=== PATIENT | female | born 2000 | race Two or more races ===

== ENCOUNTER 2020-05-26 04:57 | Emergency (ER) | payer OTHER ==
[~2020-05-26] VITALS: Ht 157.5 cm; Wt 49.9 kg
[2020-05-26 05:10] VITALS: BP 110/70
--- NOTE | 2020-05-26 05:20 | NUR ---
lab at bedside for blood draw.
--- NOTE | 2020-05-26 05:26 | NUR ---
PATIENT CAME TO ER [facility] FOR BIZZARE BEHAVIOR FROM THE STREETS. PATIENT IS AAOX4. NO SOB. BREATHING EVENLY AND UNLABORED ON ROOM AIR. PATIENT IS AMBULATORY WITH A STEADY GAIT.
[2020-05-26 05:31] LABS: BASOPHILS % (AUTO) 0.4 % (0.0-2.0); EOSINOPHILS % (AUTO) 0.9 % (0.0-6.0); HEMATOCRIT 47 % (33-45); HEMOGLOBIN 15.6 g/dL (11.5-14.8); LYMPHOCYTES # (AUTO) 2.1 /CMM (0.8-4.8); LYMPHOCYTES % (AUTO) 28.2 % (20.0-44.0); MEAN CORPUSCULAR HGB CONC 33 g/dl (31.0-36.0); MEAN CORPUSCULAR VOLUME 91 fL (82-100); MONOCYTES # (AUTO) 1.1 /CMM (0.1-1.30); MONOCYTES % (AUTO) 14.7 % (2.0-12.0); NEUTROPHILS # (AUTO) 4.1 /CMM (1.8-8.9); NEUTROPHILS % (AUTO) 55.8 % (43.0-81.0); PLATELET COUNT (AUTO) 333 /CMM (150-450); RED BLOOD CELL COUNT(AUTO) 5.16 MIL/uL (4.0-5.2); WHITE BLOOD COUNT (AUTO) 7.4 K/uL (4.3-11.0)
--- NOTE | 2020-05-26 05:32 | NUR ---
PATIENT IS GIVEN A BED BOWMAN.
[2020-05-26 05:56] LABS: ALANINE AMINOTRANSFERASE 25 U/L (12-78); ALBUMIN 4.4 g/dL (3.4-5.0); ALCOHOL, BLOOD < 3 mg/dL (0-0); ALKALINE PHOSPHATASE 92 U/L (46-116); ASPARTATE AMINOTRANSFERASE 19 U/L (15-37); BILIRUBIN,DIRECT 0.2 mg/dL (0.0-0.2); BILIRUBIN,TOTAL 0.7 mg/dL (0.2-1.0); CALCIUM, SERUM 9.2 mg/dL (8.5-10.1); CARBON DIOXIDE 25 mmol/L (21-32); CHLORIDE 99 mmol/L (98-107); CREATININE 0.7 mg/dL (0.6-1.3); GLUCOSE 80 mg/dL (74-106); POTASSIUM 3.9 mmol/L (3.5-5.1); SALICYLATE 0.5 mg/dL (2.8-20.0); SODIUM SERUM 138 mmol/L (136-145); TOTAL PROTEIN, SERUM 8.9 g/dL (6.4-8.2); UREA NITROGEN, BLOOD 11 mg/dL (7-18)
[2020-05-26 05:57] LABS: ACETAMINOPHEN 0 ug/ml (10-30)
[2020-05-26 06:16] LABS: BILIRUBIN,URINE SMALL (NEGATIVE); BLOOD, URINE TRACE-INTA Ery/uL (NEGATIVE); COLOR,URINE YELLOW (YELLOW); PROTEIN,URINE NEGATIVE (NEGATIVE); UGLUCOSE NEGATIVE (NEGATIVE)
[2020-05-26 06:17] LABS: APPEARANCE,URINE SLIGHTLY CLOUDY (CLEAR); KETONES,URINE 15 (NEGATIVE); LEUKOCYTE ESTERASE ,URINE SMALL (NEGATIVE); NITRITE, URINE NEGATIVE (NEGATIVE); UROBILINOGEN,URINE 0.2 EU/dL (0.2)
[2020-05-26 06:37] LABS: BACTERIA,URINE Rare /HPF (None Seen); SQUAMOUS EPITHELIAL CELL,UR Few /HPF (None Seen)
--- NOTE | 2020-05-26 06:48 | NUR ---
PATIENT IS ON THE PHONE WITH MOTHER.
--- NOTE | 2020-05-26 06:56 | NUR ---
PATIENT STATES THAT HER MOTHER WILL PICK HER UP. PATIENT STATES SHE WANTS TO WAIT IN THE WAITING ROOM.
== END 2020-05-26 07:03 | disposition home or self-care (01) ==
LOC: ER 05:01
DX: R46.1 Bizarre personal appearance (principal)
CPT/HCPCS: 36415; 80048; 80076; 80305; 80307; 80329; 81001; 84703; 85025; 99283; G0480; 81000-TC

== ENCOUNTER 2020-06-04 17:28 | Observation (INO) | payer SELFPAY ==
[~2020-06-04] VITALS: Ht 165.1 cm; Wt 54.9 kg
[2020-06-04] MEDS ORDERED: OLANZAPINE 10 MG VIAL IM ONE ×2 (17:31→18:00)
[2020-06-04] MEDS ORDERED: LORAZEPAM INJ 2 MG/ML VIAL ONE (17:31)
--- NOTE | 2020-06-04 17:44 | NUR ---
LESLY AND KELLEE FROM THE STREET UN RESTRAINTS TO ER BED 13. AWAKE AND ALERT. BROUGHT IN FOR MARILU LITTLE. PER KELLEE REPORT, [facility] WAS CALLED IN BECAUSE PT WAS TRYING TO GOING IN OTHER PEOPLE'S CAR AND HOUSE. PT ADMITTED TO THE COLORING ROOM MAN THAT SHE TOOK ACID AND MUSHROOM. UPON ASKING PT, SHE CONFIRMED THAT SHE DID. DENIES ANY SUICIDAL NOR HOMICIDAL IDEATION WHEN ASKED. PT REMAINED ON RESTRAINTS PER MD ORDERED FOR PT AND STAFF SAFETY. 1:1 SITTER AT BEDSIDE.MD WAS AT THE BEDSIDE FOR EVAL. ORDERS RECEIVED NOTED AND CARRIED OUT. MEDICATED ORDERED
[2020-06-04 17:48] LABS: BASOPHILS % (AUTO) 0.4 % (0.0-2.0); EOSINOPHILS % (AUTO) 1.1 % (0.0-6.0); HEMATOCRIT 41 % (33-45); HEMOGLOBIN 13.9 g/dL (11.5-14.8); LYMPHOCYTES # (AUTO) 2.7 /CMM (0.8-4.8); LYMPHOCYTES % (AUTO) 23.9 % (20.0-44.0); MEAN CORPUSCULAR HGB CONC 34 g/dl (31.0-36.0); MEAN CORPUSCULAR VOLUME 92 fL (82-100); MONOCYTES # (AUTO) 1.4 /CMM (0.1-1.30); MONOCYTES % (AUTO) 12.5 % (2.0-12.0); NEUTROPHILS # (AUTO) 6.9 /CMM (1.8-8.9); NEUTROPHILS % (AUTO) 62.1 % (43.0-81.0); PLATELET COUNT (AUTO) 343 /CMM (150-450); RED BLOOD CELL COUNT(AUTO) 4.51 MIL/uL (4.0-5.2); WHITE BLOOD COUNT (AUTO) 11.2 K/uL (4.3-11.0)
[2020-06-04 17:57] LABS: CARBON DIOXIDE 29 mmol/L (21-32); CHLORIDE 102 mmol/L (98-107); CREATININE 0.9 mg/dL (0.6-1.3); GLUCOSE 82 mg/dL (74-106); POTASSIUM 3.8 mmol/L (3.5-5.1); SODIUM SERUM 142 mmol/L (136-145); UREA NITROGEN, BLOOD 12 mg/dL (7-18)
[2020-06-04 17:59] LABS: CALCIUM, SERUM 8.8 mg/dL (8.5-10.1)
[2020-06-04] MEDS ORDERED: LORAZEPAM INJ 2 MG/ML VIAL IM ONE (18:00)
[2020-06-04 18:07] LABS: ACETAMINOPHEN < 2 ug/ml (10-30); ALANINE AMINOTRANSFERASE 36 U/L (12-78); ALBUMIN 4.1 g/dL (3.4-5.0); ALCOHOL, BLOOD < 3 mg/dL (0-0); ALKALINE PHOSPHATASE 73 U/L (46-116); ASPARTATE AMINOTRANSFERASE 31 U/L (15-37); BILIRUBIN,DIRECT 0.2 mg/dL (0.0-0.2); BILIRUBIN,TOTAL 0.7 mg/dL (0.2-1.0); SALICYLATE 0.2 mg/dL (2.8-20.0); TOTAL PROTEIN, SERUM 7.9 g/dL (6.4-8.2)
--- NOTE | 2020-06-04 18:30 | NUR ---
[facility]SULT[facility] PAGED ITS DR. LACKEY
[2020-06-04] MEDS ORDERED: ACETAMINOPHEN 325 MG TABLET PO PRN (19:00)
[2020-06-04] MEDS ORDERED: IV NS 0.9% 1,000 ML IV PRN (19:00)
[2020-06-04] MEDS ORDERED: ONDANSETRON HCL/PF 4 MG/2 ML VIAL IVP PRN (19:00)
--- NOTE | 2020-06-04 19:30 | NUR ---
PT PROVIDED WITH A MEAL
--- NOTE | 2020-06-04 20:21 | NUR ---
PT IS AWAKE, ALERT AND ORIENTED X 4. NOT IN RESP DISTRESS. ALREADY EATEN DINNER. VERBALIZED THAT SHE FEELS BETTER AND READY TO GO HOME. ER MD AWARE WELL.
--- NOTE | 2020-06-04 20:21 | NUR ---
KIA ROLAND NP WAS INFORMED THAT PT IS READY FOR DISCHARGE. PT IS OK FOR DISCHARGE
[2020-06-04 20:22] VITALS: BP 115/82
[2020-06-04 20:31] LABS: APPEARANCE,URINE Clear (CLEAR); BILIRUBIN,URINE SMALL (NEGATIVE); BLOOD, URINE Negative Ery/uL (NEGATIVE); COLOR,URINE Yellow (YELLOW); KETONES,URINE Trace (NEGATIVE); LEUKOCYTE ESTERASE ,URINE Small (NEGATIVE); NITRITE, URINE Negative (NEGATIVE); PH,URINE 6.5 (5.0-8.0); PROTEIN,URINE Trace mg/dl (NEGATIVE); UGLUCOSE Negative (NEGATIVE); UROBILINOGEN,URINE 0.2 EU/dL (0.2)
[2020-06-04 20:47] LABS: BACTERIA,URINE 1+ /HPF (None Seen); RBC,URINE NONE SEEN /HPF (0-2); SQUAMOUS EPITHELIAL CELL,UR Few /HPF (None Seen)
== END 2020-06-04 20:21 | disposition home or self-care (01) ==
LOC: ER 17:31 → OBSER 19:08
PROVIDERS: ADMIT Nurse Practitioner Acute Care; ATTEND Nurse Practitioner Acute Care
DX: T40.601A Poisoning by unspecified narcotics, accidental (unintentional), initial encounter (principal); N39.0 Urinary tract infection, site not specified; F11.159 Opioid abuse with opioid-induced psychotic disorder, unspecified; T43.621A Poisoning by amphetamines, accidental (unintentional), initial encounter; F09 Unspecified mental disorder due to known physiological condition; Y92.89 Other specified places as the place of occurrence of the external cause
CPT/HCPCS: 36415; 80048; 80076; 80305; 80307; 80329; 81001; 84702; 85025; 87086; G0378; G0480; J2060; J3490; 81000-TC

== ENCOUNTER 2023-12-09 21:29 | Emergency (ER) | payer OTHER | END 2023-12-09 21:41 | disposition left against medical advice (07) | LOC: ER 21:33 | DX: Z00.00 Encounter for general adult medical examination without abnormal findings (principal); Z53.21 Procedure and treatment not carried out due to patient leaving prior to being seen by health care provider ==